=== PATIENT | female | born 1985 | race Hispanic/Latino ===

== ENCOUNTER 2024-10-15 01:00 | Emergency (ER) | payer BC, SELFPAY ==
[2024-10-15] VITALS (7 sets, daily range): BP systolic 105–158; BP diastolic 72–102
[2024-10-15 01:22] LABS: Hematocrit 36.3 % (37.0-47.0); Hemoglobin 12.6 g/dL (12.0-16.0); Mean Corp Hgb Conc. 34.7 g/dL (33.0-37.0); Mean Corpuscular Volume 86.4 fL (81.0-99.0); Nucleated Red Blood Cells % 0 %; Platelet Count 351 10^3/uL (130-400); Red Cell Dist. Width 13.0 % (11.5-14.5)
[2024-10-15 01:34] LABS: HCG, Serum Qualitative Screen Negative
[2024-10-15 01:38] LABS: ALT (SGPT) 18 U/L (0-35); AST (SGOT) 19 U/L (14-36); Albumin 5.0 g/dl (3.5-5.0); Alkaline Phosphatase 57 U/L (38-126); Blood Urea Nitrogen 15 mg/dl (7-17); Calcium 9.7 mg/dl (8.4-10.2); Carbon Dioxide 23 mmol/L (22-30); Chloride 106 mmol/L (98-107); Glucose 111 mg/dl (70-99); Potassium 3.9 mmol/L (3.5-5.1); Sodium 138 mmol/L (135-145); Total Protein 8.0 g/dl (6.3-8.2); eGFR > 60.00
[2024-10-15 01:57] LABS: Troponin I < 0.012 ng/ml
--- NOTE | 2024-10-15 06:22 | ED.GENMED ---
History of Present Illness
<Hyun Becerra MD, Resident - Last Filed: 10/15/24 06:59>
General
Chief Complaint: Musculo-Skeletal Complaint
Source: patient and significant other
Time Seen by Provider: 10/15/24 06:01
History of Present Illness
History of Present Illness:
39-year-old female past medical history of fibromyalgia comes to the ED due to left muscle spasms, dizziness and racing heart that began around 6pm last night. The symptoms also came alongside mild crying and shaking and some chills. The symptoms
got worse around 12 AM and patient decided to come to the ED. She is here from [place] with her visiting her 's family. She was started on amoxicillin for a sinus infection around 5 days ago but has not had any fever or any respiratory
symptoms since then. She said her blood pressure went up to 169 at home before coming in and her heart rate was above 100. She says that she had some chest pressure on the right side but does not endorse any history of gastric reflux disease.
Past History
<Hyun Becerra MD, Resident - Last Filed: 10/15/24 06:59>
Past History
ED Past Medical History: Fibromyalgia
ED Past Surgical History: (X 2)
Social History
Personal:
Living: with family
Review of Systems
<Hyun Becerra MD, Resident - Last Filed: 10/15/24 06:59>
Review of Systems
Allergies reviewed?: Yes
Constitutional: Reports fatigue and chills; Denies fever
EENT: Reports other (Dry mouth)
Respiratory: Reports no symptoms
Cardiac: Reports other (Right-sided chest pain, tachycardia)
ABD/GI: Reports no symptoms
: Reports no symptoms
Musculoskeletal: Reports other (Muscle spasms left arm)
Skin: Reports no symptoms
Neurological: Reports dizzy and weakness
Endocrine: Reports no symptoms
Hematologic/Lymphatic: Reports no symptoms
Psychiatric: Reports no symptoms
Phy Exam
<Hyun Becerra MD, Resident - Last Filed: 10/15/24 06:59>
General Physical Exam
General Presentation: well appearing and no apparent distress
General age: appears stated age
General Skin: warm and dry
General Habitus: normal
General Mental: alert
General Hydration: appears well hydrated
Cardiovascular Exam
Cardiovascular Exam: regular rate/rhythm, no edema and no murmur
Pulmonary Exam
Pulmonary Exam: lungs clear, no respiratory distress, no crackles and no wheezing
Gastrointestinal Exam
Gastrointestinal Exam: normal bowel sounds, non tender, soft and non distended
Skin Exam
Skin Exam: normal color and warm/dry
Psychiatric Exam
Psychiatric Exam: normal mood/affect
Course
<Hyun Becerra MD, Resident - Last Filed: 10/15/24 06:59>
Orders/Labs/Results
Orders:
Orders
10/15/24 01:01
Electrocardiogram (*1) Urgent
Reason for Study: Chest Pain
EKG- Treatment ONCE
10/15/24 01:02
Test Result ONCE
10/15/24 01:08
Complete Blood Count/With Diff Urgent
Comprehensive Metabolic Panel Urgent
HCG, Serum Qualitative Screen Urgent
Troponin I Urgent
10/15/24 07:02
Acetaminophen [Tylenol] 650 mg PO NOW STA
Abnormal Lab Results
10/15/24
01:08
Hct 36.3 L %
(37.0-47.0)
MPV 11.1 H fL
(7.4-10.4)
Glucose 111 H mg/dl
(70-99)
10/15/24 01:08
10/15/24 01:08
Vital Signs
Initial and Last Documented VS:
Initial Vital Signs
Temp Pulse Resp BP Pulse Ox
98.2 F 104 18 158/102 100
10/15/24 01:04 10/15/24 01:04 10/15/24 01:04 10/15/24 01:04 10/15/24 01:04
Last Documented Vital Signs
Temp Pulse Resp BP Pulse Ox
98.2 F 89 16 105/72 97
10/15/24 01:04 10/15/24 07:13 10/15/24 07:13 10/15/24 07:13 10/15/24 07:13
<Scotty Frank, DO - Last Filed: 10/15/24 08:12>
Orders/Labs/Results
Orders:
Orders
10/15/24 01:01
Electrocardiogram (*1) Urgent
Reason for Study: Chest Pain
EKG- Treatment ONCE
10/15/24 01:02
Test Result ONCE
10/15/24 01:08
Complete Blood Count/With Diff Urgent
Comprehensive Metabolic Panel Urgent
HCG, Serum Qualitative Screen Urgent
Troponin I Urgent
10/15/24 07:02
Acetaminophen [Tylenol] 650 mg PO NOW STA
Abnormal Lab Results
10/15/24
01:08
Hct 36.3 L %
(37.0-47.0)
MPV 11.1 H fL
(7.4-10.4)
Glucose 111 H mg/dl
(70-99)
10/15/24 01:08
10/15/24 01:08
Vital Signs
Initial and Last Documented VS:
Initial Vital Signs
Temp Pulse Resp BP Pulse Ox
98.2 F 104 18 158/102 100
10/15/24 01:04 10/15/24 01:04 10/15/24 01:04 10/15/24 01:04 10/15/24 01:04
Last Documented Vital Signs
Temp Pulse Resp BP Pulse Ox
98.2 F 89 16 105/72 97
10/15/24 01:04 10/15/24 07:13 10/15/24 07:13 10/15/24 07:13 10/15/24 07:13
<Hyun Becerra MD, Resident - Last Filed: 10/15/24 06:59>
MDM/Problems Addressed
Differential Diagnosis Includes:
Panic attack, dehydration, anxiety
MDM/Problems Addressed:
39-year-old female past medical history of fibromyalgia comes to the ED due to left muscle spasms, dizziness and racing heart that began around 6pm last night.
EKG was unremarkable showing normal sinus rhythm. Other testing including troponin were unremarkable.
No anemia seen on CBC.
Patient's heart rate was down to 80s in the room, blood pressure normalized, symptomatically feeling much better when seen around 6:00am
Patient discharged home with instructions to continue to stay hydrated, get some more rest.
Chronic conditions affecting care: Other (Fibromyalgia)
<Hyun Becerra MD, Resident - Last Filed: 10/15/24 06:59>
*Pulse Oximetry
SaO2: 100
Oxygen Mode of Delivery: Room air
Patient hypoxic: no
*Critical Care Note
Total Time (30-74mins, 75-104mins- exclusive of procedures): Not Applicable
ED Attending Note
<Hyun Becerra MD, Resident - Last Filed: 10/15/24 06:59>
-
Portions of this chart may have been created with voice recognition software.� Occasional wrong word or��sound alike� substitutions may have occurred due to the inherent limitations of voice recognition software.
<Scotty Frank, DO - Last Filed: 10/15/24 08:12>
ED Attending Note
Patient seen and examined by attending physician: Yes
I performed a history and physical exam of patient and discussed management with resident, I reviewed resident's note and agree with documented findings and plan of care.: Yes
ED Attending Note:
I reviewed and agree with history treatment plan by Hyun Becerra MD. My exam revealed
Physical Exam
General: no apparent distress, not acutely ill
Neck: supple. no meningeal signs. normal posterior pharynx
Heart: s1/s2 regular rate and rhythm, no murmur. equal radial
pulses.
HEENT: Pupils equal round reactive to light, EOMI
Lungs: no acute respiratory distress. clear bilaterally
Abdomen: normal bowel sounds. not tender. no CVAT
Neuro: alert and oriented. no focal neurological deficits cranial nerves II through XII intact
Skin: no rash
Psychiatric: well kept. interactive and cooperative
Extremities: no edema. no calf tenderness. negative homans. good distal pulses
Nontoxic well-appearing 39-year-old female with palpitations, dizziness. Doubt ACS or PE. Patient asymptomatic. Symptoms possibly related to hypovolemia. Stable for discharge. Follow-up with primary care.
Discharge Plan
Departure
Patient Disposition: Home (Routine Discharge)
Date of Disposition: 10/15/24
Time of Disposition: 06:58
Patient with high blood pressure during this ER visit?: Yes
Condition: Good
Covid-19: Not Applicable
Discharge Problem:
Dizziness, nonspecific
Instructions: Dizziness in adults - ED discharge instructions, Fatigue - ED discharge instructions, BLOOD PRESSURE
Referrals:
UNKNOWN - PT DOES,NOT KNOW [Family Provider]
Activity Restrictions/Additional Instructions:
As discussed, symptoms are most likely due to exhaustion, sleep deprivation, dehydration or an allergy medication that you took.
Please remember to drink plenty of water and get rest.
You should follow-up with your primary care physician in [place] in 1 to 2 weeks for follow-up
Interventions
Interventions:
*Risk Screen - Suicide Last Done: 10/15/24 01:04
*General Assessment Last Done: 10/15/24 01:04
*Neglect/Abuse Screening Last Done: 10/15/24 01:04
*ED- Fall Risk Assessment Last Done: 10/15/24 07:11
*ED COVID-19 Vaccine History Last Done: 10/15/24 06:00
*Nursing Disposition Last Done: 10/15/24 07:13
ED-Musculoskeletal Assessment Last Done: 10/15/24 03:20
Discharge Date and Time
Discharge Date/Time: 10/15/24 07:14
Print Language: SAUDI ARABIAN
[2024-10-15] MEDS: TYLENOL 650 MG PO (07:06)
== END 2024-10-15 07:14 | disposition home or self-care (01) ==
LOC: EMR 01:00
PROVIDERS: Emergency Medicine; EMERGENCY PHYSICIAN Emergency Medicine
DX: R42 Dizziness and giddiness (principal); M79.7 Fibromyalgia
CPT/HCPCS: 99283; 80053; 84484; 84703; 85025; 93005